=== PATIENT | female | born 1945 | race Asian ===

== ENCOUNTER 2024-03-15 06:51 | Emergency (ER) | payer SELFPAY ==
--- NOTE | ~2024-03-15 | CT_ITS ---
CT of the Abdomen and Pelvis: Indication: Abdominal pain Technique: 2.5 mm axial scans were obtained through the abdomen and pelvis following intravenous adm inistration of 100 cc of Omnipaque 350. Dose reduction technique was used on this scan by utilizing a utomated exposure control and iterative reconstruction technique. The dose-length product (DLP) was 8 30.07 mGy-cm. Findings: Scans through the lung bases are unremarkable. The liver, spleen, pancreas, gallbladder, adrenals and kidneys are within normal limits. There are at herosclerotic calcifications of the aorta. No lymphadenopathy. Also mild wall thickening of the duodenum. No other bowel abnormality evident. Small fat-containing u mbilical hernia noted. Images through the pelvis were performed. Urinary bladder unremarkable. No pelvic mass seen. No ascit es. Impression: Wall thickening of duodenum. Suspect peptic ulcer disease. Other duodenitis or possibly groove pancre atitis would be alternative potential considerations. Reviewed, dictated and finalized at [facility]. [employer] Impression: Wall thickening of duodenum. Suspect peptic ulcer disease. Other duodenitis or possibly groove pancreatitis would be alternative potential considerations.
--- NOTE | ~2024-03-15 | US_ITS ---
Limited ABDOMINAL ULTRASOUND (Doppler ultrasound interrogation techniques used as needed for this exa m.) Ordering provider: Kaylee Banerjee MD History: . Villaseñor pos; RUQ/epigastric pain . Comparison: None. FINDINGS: PANCREAS: Normal echotexture and size of the visualized portion. PORTAL VEIN: Hepatopedal flow demonstrated. LIVER: Normal size and echotexture. Measures 15.5 cm. No focal hepatic lesions or perihepatic fluid c ollections are identified. BILIARY DUCTS: No intra or extrahepatic biliary dilation. Common bile duct measures 4.5 mm in diamete r which is normal for patient's age. GALLBLADDER: Normal. No stones, sludge, gallbladder wall thickening or pericholecystic fluid. The wal l thickness is 2.2 mm. Positive sonographic Villaseñor's sign. FREE FLUID: None visualized within the upper abdomen. IMPRESSION: Positive Villaseñor's sign. Clinical correlation for acute cholecystitis advised. Otherwise, normal limit ed abdominal ultrasound. Reviewed, dictated and finalized at [facility]. NT LEGAL ASSISTANT IMPRESSION: Positive Villaseñor's sign. Clinical correlation for acute cholecystitis advised. O therwise, normal limited abdominal ultrasound.
[2024-03-15 07:31] VITALS: BP 176/83; PULSE 66; RESP 22; TEMP 36.9; O2SAT 100
--- NOTE | 2024-03-15 07:57 | ED_ITS ---
HPI - Abdominal Pain General Chief Complaint: Abdominal Pain Stated Complaint: Abd pain, n/v/d Time Seen by Provider: 03/15/24 07:29 Source: patient and other Limitations: language barrier (ESL but good understanding and ability to speak Algerian) History of Present Illness HPI narrative: Patient presents with epigastric and right-sided abdominal pain beginning 03/11/2024. She has been nauseated and had multiple episodes of nonbloody emesis last night. She has had diarrhea since last night and states the stool is dark, black, like tar. She is not on anticoagulation. She is visiting from [facility] and came here 10/26/2023. No recent antibiotics. She continues to pass flatus. Denies prior abdominal surgery. She had a small amount of rice and bland potato last night, no spices. Related Data Allergies Allergy/AdvReac Type Severity Reaction Status Date / Time No Known Allergies Allergy Verified 03/15/24 06:53 PMFSH Social History Social History Additional living arrangements comments: Visiting from [facility] Exam 2 Narrative: GENERAL: Well-appearing, well-nourished, and in no acute distress. HEAD: Normocephalic, atraumatic. EYES: Non injected, non icteric ENT: Nares clear, no rhinorrhea or epistaxis. NECK: Supple. CHEST: Speaking in full sentences. No respiratory distress. HEART: Regular rate and rhythm. ABDOMEN/Rectal: Soft, nondistended. Mild tenderness to palpation thoughout. Villaseñor sign positive. No rigidity or guarding. Not peritoneal. Digital rectal exam performed with family present and EARTHTORY as beater room helper. Normal rectal tone. Dark brown/black stool. FOBT/guaiac positive at the periphery. EXTREMITIES: Normal range of motion. No lower extremity edema. SKIN: Warm, dry, no rash. NEURO: No focal deficits. Alert and oriented x3. PSYCH: Normal mood and affect. Course Vital Signs Vital signs: Vital Signs Temperature 98.4 F 03/15/24 07:31 Pulse Rate 66 03/15/24 07:31 Respiratory Rate 22 H 03/15/24 07:31 Blood Pressure 176/83 H 03/15/24 07:31 Pulse Oximetry 100 03/15/24 07:31 Oxygen Delivery Room Air 03/15/24 07:31 Temperature 97.7 F 03/15/24 14:09 Pulse Rate 65 03/15/24 14:09 Respiratory Rate 17 03/15/24 14:09 Blood Pressure 137/74 03/15/24 14:09 Pulse Oximetry 100 03/15/24 14:09 Oxygen Delivery Room Air 03/15/24 07:31 MDM - Abdominal Pain MDM Narrative Medical decision making narrative: Patient presents with report of epigastric and right sided abdominal pain since 03/11/2024 with episodes of emesis over the past 24 hours as well as diarrhea that started last night. In the emergency department she is afebrile with vital signs notable for mild tachypnea as well as hypertension. FOBT/guaiac positive at the periphery. Patient has evidence of urinary tract infection. She has never been a patient before, no prior culture for review. Ceftriaxone ordered. Sodium is either 126/127 based on mild hyperglyemia which is without anion gap acidosis. Lactic acid normal. [place] bleeding score: Based on patient's Hgb, BUN, initial SBP, sex, heart rate, presence/absence of melena, syncope, hepatic disease (denies), cardiac failure: 1 point by patient's report of melena which increases risk. Eagle Score (predicts readmission risk in patients with acute lower GI bleeding) Based on age, sex, previous lower GI bleed admission, CHRIS findings, HR, SBP, and initial Hgb: 4 points, consider discharge (98% probability of safe discharge) Patient is reassessed at bedside and does state that her symptoms are better. We discussed the findings of her workup including both imaging. There is not congruence of the imaging to suggest cholecystitis and her pain is resolved. Family/support person at bedside does state that she took Pepto-Bismol yesterday and this could explain the findings on rectal exam, both dark stool appreciated by patient as well as peripherally positive FOBT (possible false positive). Will discharge home with medications for urinary tract infection, acid suppression, and nausea/vomiting. Advised she follow up with the primary care physician. She does not currently have 1 as [place] and will be [place] in 2 months however she will be given a referral/contact information for someone locally if needed. Also gave strict emergency department return precautions. Verifies understanding and her and her family member/support person at bedside are in agreement. Differential Diagnosis Differential diagnosis: Likely abdominal pain, diverticulitis, gastroenteritis, pancreatitis and other (acute diarrhea; acute viral syndrome; gastritis; biliary etiology; ) Lab Data Attestation: I reviewed the patient's lab results. Lab results narrative: Leukocytosis 03/15/24 08:03 03/15/24 08:03 Labs: Lab Results 03/15/24 03/15/24 03/15/24 Range/Units 08:03 08:37 11:51 WBC 13.0 H (4.5-10.0) K/mm3 RBC 4.17 L (4.2-5.4) M/mm3 Hgb 12.4 (12.0-15.0) g/dL Hct 36.8 L (37.0-47.0) % MCV 88.2 (80-100) fl MCH 29.7 (26-34) pg MCHC 33.7 (32-36) g/dl RDW 12.9 (11.5-14.5) % Plt Count 280 (150-375) k/mm3 MPV 10.9 H (7.4-10.4) fl Immature Gran % (Auto) 0.7 H (0-0.5) % Neut % (Auto) 77.8 H (45.5-73.1) % Lymph % (Auto) 15.0 L (18.3-44.2) % Gilliam % (Auto) 5.6 (2.6-8.5) % Eos % (Auto) 0.3 (0-4.4) % Baso % (Auto) 0.6 (0.2-1.2) % Lymph # (Auto) 1.95 (0.9-3.2) K/mm3 Gilliam # (Auto) 0.7 H (0.1-0.6) K/mm3 Eos # (Auto) 0.0 (0-0.3) K/mm3 Baso # (Auto) 0.1 (0.0-0.1) K/mm3 Abs Immat Gran (auto) 0.09 H (0.00-0.031) K/mm3 Absolute Neuts (auto) 10.1 H (1.3-6.7) K/mm3 Absolute Nucleated RBC 0.000 (0.0-0.012) K/mm3 Nucleated RBC % 0.0 (0.0-0.2) % Sodium 126 L (137-145) mmol/L Potassium 4.2 (3.4-5.0) mmol/L Chloride 96 L (98-107) mmol/L Carbon Dioxide 26 (22-30) mmol/L Anion Gap 4 (4-12) mmol/L BUN 18 H (7-17) mg/dL Creatinine 0.70 (0.7-1.0) mg/dL Estim Creat Clear Calc 60 ml/min Estimated GFR > 60 (59 - ) Glucose 131 H (65-110) mg/dL Lactic Acid 1.0 (0.7-2.0) mmol/L Calcium 9.4 (8.4-10.2) mg/dL Magnesium 2.3 (1.6-2.3) mg/dL Total Bilirubin 0.7 (0.2-1.3) mg/dL AST 21 (14-36) U/L ALT 15 (6-35) U/L Alkaline Phosphatase 109 (38-126) U/L NT-Pro-B Natriuret Pep 264 H (19.9-100) pg/mL Total Protein 8.0 (6.3-8.2) g/dL Albumin 4.5 (3.5-5.1) g/dL Lipase 90 (23-300) U/L Urine Color Yellow (Yellow) Urine Appearance Turbid H (Clear) Urine pH 7.5 (5.0-9.0) Ur Specific [place] 1.011 (1.001-1.035) Urine Protein Trace (Negative) mg/dL Urine Glucose (UA) Negative (Negative) mg/dL Urine Ketones Negative (Negative) mg/dL Ur Blood (Man) 3+ H (Negative) Urine Nitrate Positive H (Negative) Urine Bilirubin Negative (Negative) Urine Urobilinogen 0.2 (<2.0) mg/dL Add Ur Microanalysis Reviewed Leukocyte Esterase Rfl 3+ H (Negative) [place]/UL Urine RBC >100 H (0-2) /hpf Urine WBC 11-20 H (0-3) /hpf Ur Squamous Epith Cells Few (Few) /hpf Urine Bacteria 4+ /hpf Urine Casts 0-2 Influenza A (RT-PCR) Negative (Negative) Influenza B (RT-PCR) Negative (Negative) SARS-CoV-2 RNA (RT-PCR) Negative (Negative) Imaging Data Radiologist's impression: ITS Impressions Abdomen Ultrasound 03/15/24 09:04 IMPRESSION: Positive Villaseñor's sign. Clinical correlation for acute cholecystitis advised. Otherwise, normal limited abdominal ultrasound. Abdomen/Pelvis CT 03/15/24 09:37 Impression: Wall thickening of duodenum. Suspect peptic ulcer disease. Other duodenitis or possibly groove pancreatitis would be alternative potential considerations. ECG Data EKG #1: Attestation: I personally reviewed and interpreted this ECG as follows: ECG completion date: 03/15/24 ECG completion time: 10:36 Interpretation: Normal sinus rhythm at a rate of 68 beats per minute. RI interval 178. QRS 84. QT/QTC 396/414. Good R-wave progression across the precordial leads. No T- wave inversions. Normal axis. Normal ECG. Discharge Plan Discharge Clinical Impression: UTI (urinary tract infection), Leukocytosis, Epigastric abdominal pain, Hyponatremia, Positive fecal occult blood test, Dark stools, Nausea and vomiting, Peptic ulcer disease Patient Disposition: Home, Self-Care Condition: Stable Instructions: Antibiotic Form, Peptic Ulcer (ED), Hyponatremia (ED), Acute Nausea and Vomiting (DC), Leukocytosis (ED), Abdominal Pain (ED), Epigastric Pain (ED), Urinary Tract Infection in Older Adults (ED), Melena (ED) Additional Instructions: If you need to follow-up with a local primary care physician, the name of the doctors listed below. As we discussed, Return to the Emergency Department immediately if the pain worsens, develops fever, persistent and uncontrolled vomiting, or for any new symptoms or concerns. Use the ondansetron/Zofran oral disintegrating tablets for nausea/vomiting, the acid suppressant for the evidence of peptic ulcer disease, and the rest of the course of the antibiotic given the concern for urinary tract infection. Patient Language: Algerian Prescriptions: New ondansetron 4 mg tablet,disintegrating 4 mg PO Q8H PRN (Reason: nausea and vomiting) Qty: 10 0RF acetaminophen 500 mg capsule 1,000 mg PO Q6H PRN (Reason: pain) Qty: 30 0RF cephalexin 500 mg capsule 500 mg PO Q6H 5 Days Qty: 20 0RF omeprazole 20 mg tablet,delayed release (DR/EC) 20 mg PO DAILY Qty: 30 0RF Follow-up/Referrals: Wayne Cintron MD [Physician] - (family practice) PHYSICIAN,LEGAL SECRETARY [Non-Staff] - Time of Disposition: 13:25
[2024-03-15 08:11] LABS: Basophils Absolute Auto 0.1 K/mm3 (0.0-0.1); Basophils Percent Auto 0.6 % (0.2-1.2); Eosinophils Percent Auto 0.3 % (0-4.4); Hematocrit 36.8 % (37.0-47.0); Hemoglobin 12.4 g/dL (12.0-15.0); Immature Granulocyte Absolute 0.09 K/mm3 (0.00-0.031); Immature Granulocyte Percent A 0.7 % (0-0.5); Lymphocytes Absolute Auto 1.95 K/mm3 (0.9-3.2); Mean Corpuscular HGB Conc 33.7 g/dl (32-36); Mean Corpuscular Hemoglobin 29.7 pg (26-34); Mean Corpuscular Volume 88.2 fl (80-100); Mean Platelet Volume 10.9 fl (7.4-10.4); Monocytes Absolute Auto 0.7 K/mm3 (0.1-0.6); Monocytes Percent Auto 5.6 % (2.6-8.5); Neutrophils Absolute Auto 10.1 K/mm3 (1.3-6.7); Neutrophils Percent Auto 77.8 % (45.5-73.1); Platelet Count Result 280 k/mm3 (150-375); Red Blood Count 4.17 M/mm3 (4.2-5.4); Red Cell Distribution Width 12.9 % (11.5-14.5)
[2024-03-15 08:20] LABS: Alanine Aminotransferase 15 U/L (6-35); Albumin Level 4.5 g/dL (3.5-5.1); Alkaline Phosphatase 109 U/L (38-126); Anion Gap 4 mmol/L (4-12); Aspartate Amino Transferase 21 U/L (14-36); Bilirubin,Total 0.7 mg/dL (0.2-1.3); Blood Urea Nitrogen 18 mg/dL (7-17); Calcium 9.4 mg/dL (8.4-10.2); Carbon Dioxide 26 mmol/L (22-30); Chloride 96 mmol/L (98-107); Estimated CRCL calculation 60 ml/min; Estimated Glomerular Filt Rate > 60; Glucose 131 mg/dL (65-110); Lipase 90 U/L (23-300); Potassium 4.2 mmol/L (3.4-5.0); Sodium 126 mmol/L (137-145)
[2024-03-15] MEDS: ONDANSETRON INJ 4 MG/2 ML VIAL IV PUSH (08:20)
[2024-03-15] MEDS: HYDROmorphone HCL INJ (*CRX) 1 MG/ML SYR 0.5 MG IV PUSH (08:21)
[2024-03-15 08:24] VITALS: BP 160/98; PULSE 88; RESP 18; O2SAT 100
[2024-03-15 09:05] LABS: Add Urine Microscopic? YES; Appearance Urine Turbid (Clear); Bacteria Urine 4+ /hpf; Bilirubin Urine Negative (Negative); Blood Urine 3+ (Negative); Color Urine Yellow (Yellow); Glucose Urine UA Negative (Negative); Ketones Urine Negative (Negative); Leukocyte Esterase Ur 3+ LEU/UL (Negative); Need Manual Microscopic Reviewed; Nitrate Urine Positive (Negative); Non Pathogenic Casts 0-2; Protein Urine Trace mg/dL (Negative); RBC Urine >100 /hpf (0-2); Specific Grav Ur 1.011 (1.001-1.035); Squamous Epithelial Cell Urine Few /hpf (Few); Urobilinogen Urine 0.2 mg/dL (<2.0); pH Urine 7.5 (5.0-9.0)
[2024-03-15 09:06] LABS: Magnesium 2.3 mg/dL (1.6-2.3)
[2024-03-15 09:23] LABS: Influenza A QL RT-PCR Negative (Negative); Influenza B QL RT-PCR Negative (Negative); SARS-CoV-2 RNA PCR Negative (Negative)
--- NOTE | 2024-03-15 10:18 | ECG_ITS ---
Test Date: 2024-03-15 10:36:27 Measurements Intervals [place] Rate: 68 P: 55 NE: 178 QRS: 38 QRSD: 84 T: 41 QT: 396 QTc: 424 Interpretive Statements SINUS RHYTHM No previous ECG available for comparison Electronically Signed On 03-17-2024 16:57:57 [employer]ING GOODS SALESPERSON by Jeffry Joseph M.D.
[2024-03-15 10:43] LABS: NT Pro B Type Natriuretic Pept 264 pg/mL (19.9-100)
[2024-03-15 10:44] VITALS: BP 192/96; PULSE 72; RESP 15; O2SAT 100
[2024-03-15] MEDS: PANTOPRAZOLE SODIUM IV 40 MG VIAL IV PUSH (11:48)
[2024-03-15 11:53] VITALS: BP 166/81; PULSE 68; RESP 14; O2SAT 100
[2024-03-15 14:09] VITALS: BP 137/74; PULSE 65; RESP 17; TEMP 36.5; O2SAT 100
== END 2024-03-15 14:10 | disposition home or self-care (01) ==
PROVIDERS: Emergency Provider Student in an Organized Health Care Education/Training Program
DX: N39.0 Urinary tract infection, site not specified (principal); D72.829 Elevated white blood cell count, unspecified; R10.13 Epigastric pain; E87.1 Hypo-osmolality and hyponatremia; R19.5 Other fecal abnormalities; R11.2 Nausea with vomiting, unspecified; K27.9 Peptic ulcer, site unspecified, unspecified as acute or chronic, without hemorrhage or perforation; Z20.822 Contact with and (suspected) exposure to COVID-19
CPT/HCPCS: 36415; 74177; 76705; 80053; 81001; 83605; 83690; 83735; 83880; 85025; 87086; 87636; 93005; 96365; 96375; 99284; J0696; J1171; J2405; J2470; Q9967